=== PATIENT | female | born 1935 | race Caucasian/White ===

== ENCOUNTER 2022-05-20 23:11 | Emergency (ER) | payer MEDICARE, OTHER ==
[~2022-05-20] VITALS: Ht 154.9 cm; Wt 81.6 kg
[2022-05-20 23:55] LABS: BASOPHILS # (AUTO) 0.1 (0.0-0.1); BASOPHILS % 0.5 % (0.0-1.0); EOSINOPHILS % 0.2 % (0.0-6.0); HEMATOCRIT 44.4 % (34.2-44.1); HEMOGLOBIN 14.3 g/dL (12.0-16.0); LYMPHOCYTES % 6.9 % (18.0-39.1); MEAN CORPUSCULAR HEMOGLOBIN 26.6 pg (28-32); MEAN CORPUSCULAR HGB CONC 32.2 g/dL (31-35); MEAN CORPUSCULAR VOLUME 82.5 fL (81-99); MONOCYTES # (AUTO) 0.6 (0.2-0.8); MONOCYTES % 3.8 % (4.4-11.3); NEUTROPHILS # (AUTO) 12.9 (2.1-6.9); NEUTROPHILS % 88.1 % (38.7-80.0); PLATELET COUNT 223 x10e3/uL (140-360); RED BLOOD COUNT 5.38 x10e6/uL (3.6-5.1); RED CELL DISTRIBUTION WIDTH 13.5 % (11.7-14.4)
[2022-05-21 00:13] LABS: ALBUMIN 3.8 g/dL (3.5-5.0); ALBUMIN/GLOBULIN RATIO 1.2 (0.8-2.0); ANION GAP 18.6 mmol/L (8-16); CALCIUM 9.4 mg/dL (8.4-10.2); CREATININE, SERUM 1.07 mg/dL (0.57-1.11); POTASSIUM 3.6 mmol/L (3.5-5.1)
[2022-05-21 00:20] LABS: CREATINE KINASE MB 4.3 ng/mL (0-5.0)
[2022-05-21] MEDS ORDERED: ASPIRIN 325 MG TAB PO ONE (00:30)
[2022-05-21 00:39] LABS: INR 1.07; PARTIAL THROMBOPLASTIN TIME 28.2 seconds (23.8-35.5); PROTHROMBIN TIME 14.1 seconds (11.9-14.5)
[2022-05-21 00:41] LABS: CLARITY,URINE CLEAR (CLEAR); COLOR,URINE YELLOW (YELLOW); KETONES,URINE 2+ (NEGATIVE); LEUKOCYTE ESTERASE ,URINE NEGATIVE (NEGATIVE); NITRITE,URINE NEGATIVE (NEGATIVE); PROTEIN,URINE DIPSTICK TRACE (NEGATIVE)
[2022-05-21 00:42] LABS: URINE UROBILINOGEN 0.2 mg/dL (0.2 - 1)
[2022-05-21] MEDS ORDERED: ASPIRIN 81 MG CHEW TAB ONE (00:43)
[2022-05-21] MEDS ORDERED: ASPIRIN 81 MG CHEW TAB PO ONE (00:45)
[2022-05-21 00:47] LABS: BACTERIA,URINE FEW /HPF; EPITHELIAL CELLS,URINE FEW /LPF; RBC,URINE 0-5 /HPF (0-5); WBC,URINE (MAN) 0-5 /HPF (0-5)
[2022-05-21] MEDS ORDERED: ONDANSETRON HCL INJ 2MG/ML 2ML 2 MG/ML VIAL IV STA (01:52)
[2022-05-21] MEDS ORDERED: Morphine 2mg Syringe 2 MG/ML SYR IV ONE (02:00)
[2022-05-21] MEDS ORDERED: SODIUM CHLORIDE 0.9% 1000ML 1,000 ML IV SCH (02:00)
[2022-05-21] MEDS ORDERED: ONDANSETRON HCL INJ 2MG/ML 2ML 2 MG/ML VIAL ONE (02:08)
[2022-05-21] MEDS ORDERED: SODIUM CHLORIDE 0.9% 1000ML 1,000 ML ONE (02:09)
[2022-05-21] MEDS ORDERED: Morphine 2mg Syringe 2 MG/ML SYR ONE (02:09)
[2022-05-21 02:14] LABS: CREATINE KINASE MB 6.5 ng/mL (0-5.0)
[2022-05-21 02:25] VITALS: BP 106/77
== END 2022-05-21 02:44 | disposition other institution (70) ==
LOC: ER 23:39
DX: R10.10 Upper abdominal pain, unspecified (principal); I21.4 Non-ST elevation (NSTEMI) myocardial infarction; K56.609 Unspecified intestinal obstruction, unspecified as to partial versus complete obstruction; R11.2 Nausea with vomiting, unspecified; I10 Essential (primary) hypertension; E11.65 Type 2 diabetes mellitus with hyperglycemia; F32.A Depression, unspecified; Z20.822 Contact with and (suspected) exposure to COVID-19; Z95.810 Presence of automatic (implantable) cardiac defibrillator
CPT/HCPCS: 36415; 71045; 74176; 80053; 81001; 82550; 82553; 83690; 84484; 85025; 85610; 85730; 93005; 99285; C9113; J2270; J2405; J7030; U0002